=== PATIENT | male | born 1950 | race Caucasian/White ===

== ENCOUNTER 2023-03-30 09:17 | Day surgery (SDC) | payer MEDICARE, SELFPAY ==
--- NOTE | 2023-03-29 13:34 | HO.ANESPROP2 ---
Documented by User: Becka De Jesus NP 03/29/23 13:38 HPI - Anesthesia Eval Consult details Narrative: 72yo M for Colonoscopy Hx of tongue cancer with radiation and chemo PMFSH Past Medical History Medical History Environmental allergies Erosive gastritis Hypothyroidism Skin cancer Tongue cancer Surgical History Surgical History H/O prostatectomy H/O resection of liver History of tonsillectomy Hx of colonoscopy (~2017) Hx of esophagogastroduodenoscopy (~2017) Social History Social History Patient Tobacco Use Status: Former Tobacco user Quit Date: 40 years ago Use of substances other than those prescribed or required for medical reasons: No Are you DNR?: No Advance Directives: No Advance Directives Information Provided: Yes Meds Allergies Allergy/AdvReac Type Severity Reaction Status Date / Time No Known Allergies Allergy Verified 03/30/23 12:08 Home Medications Medication Instructions Recorded Confirmed Last Taken Type levothyroxine 50 mcg tablet 50 mcg PO DAILY 03/29/23 03/30/23 Unknown History lisinopril 5 mg tablet 5 mg PO DAILY 03/29/23 03/30/23 03/30/23 History simvastatin 10 mg tablet 10 mg PO BEDTIME 03/30/23 03/30/23 Unknown History Exam Exam Date and Time: March 29, 2023 1334 Assessment and Plan Assessment Anesthesia Assessment: Chart Reviewed Documented by User: Olya Mac MD 03/30/23 12:21 PMFSH Past Medical History Medical History Environmental allergies Erosive gastritis Hypothyroidism Skin cancer Tongue cancer Surgical History Surgical History H/O prostatectomy H/O resection of liver History of tonsillectomy Hx of colonoscopy (~2018) Hx of esophagogastroduodenoscopy (~2018) History of Problems with Anesthesia: No Social History Social History Patient Tobacco Use Status: Former Tobacco user Quit Date: 40 years ago Use of substances other than those prescribed or required for medical reasons: No Are you DNR?: No Advance Directives: No Advance Directives Information Provided: Yes Meds Allergies Allergy/AdvReac Type Severity Reaction Status Date / Time No Known Allergies Allergy Verified 03/30/23 12:08 Home Medications Medication Instructions Recorded Confirmed Last Taken Type levothyroxine 50 mcg tablet 50 mcg PO DAILY 03/29/23 03/30/23 Unknown History lisinopril 5 mg tablet 5 mg PO DAILY 03/29/23 03/30/23 03/30/23 History simvastatin 10 mg tablet 10 mg PO BEDTIME 03/30/23 03/30/23 Unknown History Exam Airway Mallampati Class: III TM Dist: >3cm Neck ROM: Limited Denture: Upper Loose/Missing/Broken Teeth: No Heart: RRR Lungs: CTA Assessment and Plan Assessment Anesthesia Assessment: Anesthesia Plan Discussed Final Anesthetic Review History of Problems with Anesthesia: No NPO: Yes ASA Class: II Final Preanesthetic Review: Meds/Allgs Chart Reviewed, Consent Obtained/Reviewed and Anes Risks/Benef Reviewed Patient Risk: Low Procedure Risk: Low Anesthetic Plan Anesthetic Plan: MAC: Disposition: Standard PACU
[2023-03-30 11:19] VITALS: BMI 26.6
[2023-03-30 11:25] VITALS: PULSE 66; RESP 18; TEMP 36.4; O2SAT 97
[2023-03-30] MEDS: Lactated Ringers 1,000 ML 50 ML IVCONT (12:10)
--- NOTE | 2023-03-30 12:17 | P.HPSUR_ITS ---
Pre-Procedural Eval Section A Date of Service: 03/30/23 Section B Chief Complaint: Encounter for screening for malignant neoplasm of Details of Present Illness: see H*P no changes Relevant Family History (Specify if Yes): No Relevant Social History: None Present Medications: see Short Stay Collaborative assessment Medical History: No relevant PMH History of Previous Operations: No relevant previous surgery Allergies: Allergies Allergy/AdvReac Type Severity Reaction Status Date / Time No Known Allergies Allergy Verified 03/30/23 12:08 Review of Systems Sugical H&P ROS: Negative: Constitution, Cardiovascular, Respiratory, Neuro logical, Psychiatric, Hem-Onc, Allergic/Immunologic, Gastrointestinal, Genitourinary, Musculoskeletal, Integumentary, Endocrine and Eyes/Ears/Nose/Throat Exam Surgical H&P Exam: Normal: HEENT, Normal: Heart, Normal: Lungs, Normal: Extremities, Normal: Abdomen, Normal: Skin and Normal: Neurological Plan Diagnosis/Plan: Unchanged I have reviewed the history and physical and performed a pertinent physical examination on my patient. No changes have occurred unless specified. Time Spent With Patient Time: Total time managing care of this patient today ____ minutes.
[2023-03-30 12:57] VITALS: BP 85/48; PULSE 63; RESP 18; TEMP 36.2; O2SAT 97
--- NOTE | 2023-03-30 12:57 | P.BOP_ITS ---
Brief Operative Note Date of Service: 03/30/23 Pre-op diagnosis: screening Post-op diagnosis: same Procedure: colonoscopy Surgeon: Sagar Finch Anesthesia: MAC Was an Breastfeeding Peer Counselor used for this Procedure?: No Estimated blood loss (mL): 2 Pathology: other Condition: stable Disposition: PACU
[2023-03-30 13:12] VITALS: BP 101/62; PULSE 68; RESP 18; O2SAT 97
[2023-03-30 13:27] VITALS: BP 113/71; PULSE 72; RESP 18; TEMP 36.6; O2SAT 97
--- NOTE | 2023-04-17 23:50 | OP_ITS ---
DATE OF SERVICE: 03/30/2023 SURGEON: Sagar Finch MD INDICATIONS: Colon cancer screening. PREOPERATIVE DIAGNOSIS: POSTOPERATIVE DIAGNOSIS: PROCEDURE PERFORMED: Colonoscopy to the terminal ileum with biopsy. ESTIMATED BLOOD LOSS: COMPLICATIONS: ANESTHESIA: Monitored anesthesia care. ASSISTANTS: SPECIMENS: DESCRIPTION OF PROCEDURE: A history and physical performed. The risks and benefits of the procedure were explained to the patient. Informed consent was obtained. The patient was placed in left lateral decubitus position. A digital rectal exam was performed and was found to be normal. The Olympus pediatric video colonoscope was introduced into the rectum and advanced to the cecum. The cecum was identified by transillumination, palpation, and identification of ileocecal valve. Examination was performed. The scope was removed. He tolerated the procedure well and was taken to recovery room in stable condition. FINDINGS: The terminal ileum was examined and appeared normal. The visualized colonic mucosa was within normal limits without evidence of masses or ulcers. Two polyps were identified. These measured less than 10 mm and were removed with biopsy forceps. They were located in the cecum and right colon. The quality of the prep was good. Retroflexed examination showed internal hemorrhoids. IMPRESSION: Colon polyps. RECOMMENDATION: Follow up the biopsy results. MD LEXI Paz/ILDEFONSOL / [id number]
== END 2023-03-30 14:05 | disposition home or self-care (01) ==
PROVIDERS: PCP Internal Medicine; Visit Provider Internal Medicine Gastroenterology
PROC: 0DJD8ZZ Inspection of Lower Intestinal Tract, Via Natural or Artificial Opening Endoscopic (ICD-10-PCS; CPT 45378; principal; 2023-03-30 10:50)
DX: Z12.11 Encounter for screening for malignant neoplasm of colon (principal); Z86.010 Personal history of colon polyps; D12.0 Benign neoplasm of cecum; D12.2 Benign neoplasm of ascending colon; K64.8 Other hemorrhoids; E03.9 Hypothyroidism, unspecified; J30.89 Other allergic rhinitis; Z90.79 Acquired absence of other genital organ(s); Z85.810 Personal history of malignant neoplasm of tongue; Z85.828 Personal history of other malignant neoplasm of skin; Z92.21 Personal history of antineoplastic chemotherapy; Z92.3 Personal history of irradiation; Z79.82 Long term (current) use of aspirin; Z79.899 Other long term (current) drug therapy; Z87.891 Personal history of nicotine dependence
CPT/HCPCS: 45380; 88305